=== PATIENT | male | born 1990 | race Two or more races ===

== ENCOUNTER → 2017-07-28 | Outpatient (CLI) | payer OTHER ==
--- NOTE | 2017-08-28 00:11 | ECWPNPC ---
PATIENT NAME: MICHELLE SZYMANSKI : 1990 GENDER: MALE VISIT DATE: 07/28/2017 DISCHARGE DATE: 07/28/17 1515 VISIT LOCKED DATE TIME: PHYSICIAN: ARNAUD RAO RESOURCE: ARNAUD RAO REASON FOR APPOINTMENT 1. NECK AND LOW BACK PAIN HISTORY OF PRESENT ILLNESS NEW PATIENT CONSULT: WHEN DID YOUR PAIN FIRST START? . WHEN DID YOUR PAIN FIRST START? . BRIEFLY DESCRIBE HOW YOUR PAIN STARTED? . BRIEFLY DESCRIBE HOW YOUR PAIN STARTED? . HOW DOES YOUR PAIN CHANGE WITH TIME? . HOW DOES YOUR PAIN CHANGE WITH TIME? . DOES YOUR PAIN AWAKEN YOU FROM SLEEP? . DOES YOUR PAIN AWAKEN YOU FROM SLEEP? . HOW MANY HOURS OF SLEEP DO YOU NORMALLY GET? . HOW MANY HOURS OF SLEEP DO YOU NORMALLY GET? . ANY DIAGNOSTIC TESTING? . ANY DIAGNOSTIC TESTING? . FACILITY WHERE TESTS WERE DONE? ____. FACILITY WHERE TESTS WERE DONE? ____. PAIN TREATMENT TREATMENT YES TREATMENT YES PAIN TREATMENT TREATMENT YES TREATMENT YES CANCER HAVE YOU EVER HAD ANY TYPE OF CANCER?NO HAVE YOU EVER HAD ANY TYPE OF CANCER?NO CANCER HAVE YOU EVER HAD ANY TYPE OF CANCER?NO HAVE YOU EVER HAD ANY TYPE OF CANCER?NO NO. NO. PAIN SCREENING: PATIENT HAS A COMPLAINT OF ACUTE OR CHRONIC PAIN :YES :YES PATIENT HAS A COMPLAINT OF ACUTE OR CHRONIC PAIN :YES :YES FALL RISK SCREENING: SCREENING :NO FALLS IN THE PAST YEAR :NO FALLS IN THE PAST YEAR SCREENING :NO FALLS IN THE PAST YEAR :NO FALLS IN THE PAST YEAR AMATO INVENTORY: QUESTIONNAIRE ASSESSEDTBD ASSESSEDTBD QUESTIONNAIRE ASSESSEDTBD ASSESSEDTBD SCORE VALUE CALCULATED NO WHEN ASKED SPECIFICALLY DENIES SUICIDAL IDEATION VALUE CALCULATED NO SCORE VALUE CALCULATED NO WHEN ASKED SPECIFICALLY DENIES SUICIDAL IDEATION VALUE CALCULATED NO TODAY'S VISIT: NOTES: REFERRED BY KELLIE HOWELL FOR FURTHER EVAL AND TREATMENT OF CHRONIC NECK AND LOW BACK PAIN. WAS PREVEIOUSLY TREATED WITH DR MANDEL THROUGH PAIN SOLUTIONS AND DID HAVE CERVICAL FACET BLOCKS DONE BILATERALLY ONSET SEVERAL YEARS AGO AND PROGRESSIVELY GOT WORSE. HAS HAD NO MAJOR TRAUMA. NOTES PAIN IN THE NECK AND THE LOW BACK AND THEN MID BACK. NECK IS USUALLY THE NECK. NOTES PAIN WITH SITTING AND MOVEMENT OF THE HIPS. NO RAD TO LEGS, FEET, OR ARMS, HANDS. NO SPECIIFIC WEAKNESS. NO N/T. IS HAVING PAIN IN RIGHT WRIST, LEFT KNEEWAS TOLD HAS PINCHED RIGHT ULNAR NERVE PER EMG?DR ART. MOST ACTIVITES ARE UNCOMF AND CAN LIMIT ACTIVITES. PAIN IS WORST IN AM AND OCC AT NITE. HAS HAD PT FOR NECK AND LOW BACK - MASSAGE WAS THE BEST BUT PAIN RETURNED. WAS TRIALED ON GABAPENTIN WHICH MADE TOO SLEEPY. IBU NO HELP, FLEX, BACLOFEN NO HELP. WAS TESTED FOR LYME - NEG.. CURRENT MEDICATIONS NONE PAST MEDICAL HISTORY DEGENERATION OF LUMBAR DISC ARTHRITIS ALLERGIES N.K.D.A. SURGICAL HISTORY LEFT FOOT STEPPED ON NAIL AND NEEDED TO BE REMOVED FROM FOOT 2000 FAMILY HISTORY FATHER: ALIVE MOTHER: ALIVE 1 BROTHER(S) . SOCIAL HISTORY GENERAL: TOBACCO USE ARE YOU A:CURRENT SMOKER ARE YOU INTERESTED IN QUITTING?NOT READY TO QUIT COUNSELED THE PATIENT ON SMOKING EFFECTS, EDUCATION [id number]/29/2017 HOW MANY CIGARETTES A DAY DO YOU SMOKE?11-20 PATIENT COUNSELED ON THE DANGERS OF TOBACCO USE AND URGED TO QUIT:07/28/2017 ALCOHOL SCREENING POINTS0 INTERPRETATIONNEGATIVE RECREATIONAL DRUG USE DRUG USE?YES HOW OFTEN AND HOW MUCH? MARIJUANA DAILY CAFFEINE CAFFEINE USE?YES HOW OFTEN AND HOW MUCH? DAILY LEARNING BARRIERS / SPECIAL NEEDS BARRIERS TO LEARNING?NO HEARING IMPAIRED?NO VISION IMPAIRED?YES : CORRECTIVE LENSES LEARNING PREFERENCES?NO SPECIAL DEVICES?NO PAIN CLINIC PFS, CLERGY, PUBLIC HEALTH REFERRALS CLERGY REFERRAL NEEDED?NO WAS THE PROVIDER NOTIFIED OF ANY PERTINENT INFO?NO PFS REFERRAL NEEDED?NO PUBLIC HEALTH REFERRAL NEEDED?NO PFS REFERRAL NEEDED?NO CLERGY REFERRAL NEEDED?NO PUBLIC HEALTH REFERRAL NEEDED?NO WAS THE PROVIDER NOTIFIED OF ANY PERTINENT INFO?NO HAS THE PATIENT BEEN EDUCATED REGARDING HIS/HER PLAN OF CARE?YES HAS THE PATIENT BEEN EDUCATED REGARDING PAIN, THE RISK FOR PAIN, THE IMPORTANCE OF EFFECTIVE PAIN MANAGEMENT, AND THE PAIN ASSESSMENT PROCESS?YES PATIENT: ____, ____. ADVANCE DIRECTIVES HEALTH CARE PROXY?NO WOULD YOU LIKE MORE INFORMATION?NO HOSPITALIZATION/MAJOR DIAGNOSTIC PROCEDURE DENIES PAST HOSPITALIZATION REVIEW OF SYSTEMS REVIEWED BY: PROVIDER: ARNAUD [place] . CONSTITUTIONAL: ANY CHANGE IN YOUR MEDICAL CONDITION? NO, NO . CHILLS NO, NO . FEVER NO, NO . INFECTION: DO YOU HAVE NEW INFECTIONS? NO, NO . DO YOU HAVE HISTORY OF MRSA? NO, NO . MUSCULOSKELETAL: ANY NEW PATTERNS OF PAIN OR NUMBNESS? NO, NO . SYTEMIC LUPUS NO, NO . GASTROENTEROLOGY: ANY NEW CHANGE IN BOWEL CONTROL? NO, NO . BARRETTS ESOPHAGUS NO, NO . CIRRHOSIS NO, NO . HEPATITIS NO, NO . LIVER FAILURE NO, NO . ACID REFLUX NO, NO . UNEXPLAINED WEIGHT LOSS NO, NO . GENITOURINARY: ANY NEW CHANGE IN BLADDER CONTROL? NO, NO . IS THERE A CHANCE YOU COULD BE ? NO, NO . HEMATOLOGY/LYMPH: DO YOU TAKE ANY BLOOD THINNERS? (FOR EXAMPLE- COUMADIN, PLAVIX, AGGRENOX, PLATEL, PRADAXA, OR XARELTO) NO, NO . WHEN WAS YOUR LAST DOSE? DATE: TIME: , DATE: TIME: . LOW PLATELET COUNT NO, NO . SICKLE CELL DISEASE NO, NO . VON WILLIEBRANDS NO, NO . FACTOR V LEIDEN NO, NO . THALLASEMIA NO, NO . ANEMIA NO, NO . EASY BRUISING NO, NO . NEUROLOGY: HAVE YOU FALLEN IN THE PAST 6 MONTHS? NO, NO . ANY NEW EXTREMITY NUMBNESS OR WEAKNESS? NO, NO . HEAD INJURY NO, NO . DEMENTIA NO, NO . CEREBRAL PALSY NO, NO . MULTIPLE SCLEROSIS NO, NO . DIZZINESS NO, NO . HEADACHE NECK DOES CAUSE HEADACHES. . STROKES NO, NO . VERTIGO NO, NO . CARDIOLOGY: DO YOU HAVE A PACEMAKER OR DEFIBRILLATOR? NO, NO . ANGINA NO, NO . HEART ATTACK NO, NO . HEART SURGERY NO, NO . CONGESTIVE HEART FAILURE/FLUID OVERLOAD NO, NO . CHEST PAIN NO, NO . HIGH BLOOD PRESSURE NO, NO . IRREGULAR HEART BEAT NO, NO . RESPIRATORY: HAVE YOU BEEN SICK IN THE PAST WEEK? NO, NO . FEVER NO, NO . FLU LIKE SYMPTOMS? NO, NO . CPAP NO, NO . BYPAP NO, NO . ASTHMA NO, NO . EMPHYSEMA NO, NO . CHRONIC LUNG DISEASES NO, NO . SHORTNESS OF BREATH ON EXERTION NO, NO . DO YOU USE ANY TYPE OF TOBACCO (SMOKE, SMOKELESS, CHEW)? , YES . COUGH NO, NO . SNORING NO, NO . INTEGUMENTARY: DO YOU HAVE ANY RASHES OR OPEN SORES? NO, NO . ALLERGIC/IMMUNO: ARE YOU ALLERGIC TO SHELLFISH OR IV DYE? NO, NO . ANY NEW ALLERGIES? NO, NO . PSYCHIATRIC: DO YOU HAVE THOUGHTS OF HURTING YOURSELF OR SOMEONE ELSE? NO, NO . ARE YOU ABUSED, NEGLECTED, OR IN AN UNSAFE ENVIRONMENT? NO, NO . ENDOCRINOLOGY: ARE YOU DIABETIC? NO, NO . THYROID DISORDER NO, NO . OTHER: DO YOU NEED ANY PRESCRIPTIONS? NO, NO . IF YES, PLEASE LIST: ____, ____ . ANY NEW PROBLEMS WITH YOUR MEDICATIONS? NO, NO . WHEN DID YOU LAST EAT? ____, ____ . WHEN DID YOU LAST DRINK? ____, ____ . WHAT DID YOU LAST DRINK? ____, ____ . NAME OF PERSON DRIVING YOU HOME? ____, ____ . DO YOU HAVE ANY OTHER QUESTIONS OR CONCERNS NO, NO . VITAL SIGNS WT 159.2 LBS, HT 66 IN, BMI 25.69 INDEX, BP 146/85 MM HG, HR 94 /MIN, RR 16 /MIN, TEMP 98.2 F, OXYGEN SAT % 99%, NA INITIALS CM 1347. EXAMINATION GENERAL EXAMINATION: PSYCHALERT , ORIENTED X 3 , APPREARS SAD. POOR EYE CONTACT. HEENT:NORMOCEPHALIC, NO LYMPHADENOPATHY, NO THYROMEGLY. LUNGS:CLEAR TO AUSCULTATION BILATERALLY, NO WHEEZES, RALES OR RHONCHI. HEART:HEART RATE REGULAR, NORMAL S1S2, NO MURMURS, CLICK OR RUBS. MUSCULOSKELETAL:MUSCLE STRENGTH TESTING 5/5 BILATERAL. POINT TENDERNESS OVER CERVICAL SPINOUS PROCESSES, THORACIC SPINOUS PROCESSES AND LUMBAR SPINOUS PROCESSSES, NO SACRAL ILIAC JOINT TENDERNESS. CAN FLEX TO 90 DEGREES. NO PAIN WITH SLR. PAIN WITH PELVIC CONPRESSION ON LEFT . NEUROLOGIC EXAM:NO SENSORY DEFICIET OVER UPPER OR LOWER EXTREMITIES. DTR'S 2+ BILATERAL UPPER AND LOWER EXTREMITIES. , CN'S II-XII GROSSLY INTACT. 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 CLINICAL NOTES: DISCUSSED MEDICATION OPTIONS. IN SPECIFIC STATED THAT WE COULD LOOK AT INTERVENTIONAL TREATMENTS BUT PT STATES HE IS NOT INTERESTED IN THIS OPTION. WOULD BE WILLING TO TRY NON-OPIOD MEDICATIONS BUT DID REVIEW WITH HIM AND HIS SO THAT OPIODS WERE NOT THE DIRECTION THAT ANY PAIN CENTER IS GOING PARTICULARLY INLIGHT OF HIS YOUTH AND THATTHE PRIMARY CAUSE OF DISCOMFORT APPEARS TO BE DEGENERATIVE CHANGES. PREVENTIVE MEDICINE PAIN CLINIC TEACHING: MEDICATIONS REVIEWED INDOCIN WITH PATIENT AND S.O. IMPORTANCE OF TAKING WITH FOOD AND NOT TO USE NSAIDS WITH IT. . PROCEDURE CODES FA211 ESTABILISHED PATIENT [facility] CHARGE DISPOSITION & COMMUNICATION FOLLOW UP ONE MONTH (REASON: NECK/BACK PAIN) ELECTRONICALLY SIGNED BY GREGG PARKS ON 08/27/2017 AT 09:15 PM EDT DISCLAIMER : THIS IS A VISIT SUMMARY EXTRACTED FROM THE [employer] CHART. IT IS NOT A COPY OF THE [employer] PROGRESS NOTE. MTDD
== END ==
LOC: M PAIN 13:45
PROVIDERS: ATTEND Nurse Practitioner Family
DX: G89.29 Other chronic pain (principal); M54.2 Cervicalgia; M54.5 Low back pain; M47.892 Other spondylosis, cervical region; M19.90 Unspecified osteoarthritis, unspecified site; F17.210 Nicotine dependence, cigarettes, uncomplicated; F12.10 Cannabis abuse, uncomplicated

== ENCOUNTER → 2017-08-25 | Outpatient (CLI) | payer OTHER ==
--- NOTE | 2017-09-25 00:51 | ECWPNPC ---
PATIENT NAME: MICHELLE SZYMANSKI : 1990 GENDER: MALE VISIT DATE: 08/25/2017 DISCHARGE DATE: 08/25/17 1127 VISIT LOCKED DATE TIME: PHYSICIAN: ARNAUD RAO RESOURCE: ARNAUD RAO REASON FOR APPOINTMENT 1. NECK/BACK PAIN HISTORY OF PRESENT ILLNESS HISTORY OF PRESENT ILLNESS: PAIN THE PATIENT DESCRIBES THE PAIN... FALL RISK SCREENING: SCREENING :NO FALLS IN THE PAST YEAR TODAY'S VISIT: NOTES: RATES PAIN TODAY 10/10. DESCRIBES PAIN SHARP AND SORE AND IS CENTERED IN LOW BACK AND JOINTS. COULD NOT TOLERATE INDOMETHICIN. HAD LABS DONE AND LABS ARE REVIEWED. CURRENT MEDICATIONS NOT-TAKING INDOMETHACIN 50 MG CAPSULE 1 CAPSULE WITH FOOD OR MILK ORALLY TWICE A DAY MEDICATION LIST REVIEWED AND RECONCILED WITH THE PATIENT PAST MEDICAL HISTORY DEGENERATION OF LUMBAR DISC ARTHRITIS ALLERGIES N.K.D.A. SOCIAL HISTORY GENERAL: TOBACCO USE ARE YOU A:CURRENT SMOKER ARE YOU INTERESTED IN QUITTING?NOT READY TO QUIT COUNSELED THE PATIENT ON SMOKING EFFECTS, EDUCATION TABZONAJ29/29/2017 HOW MANY CIGARETTES A DAY DO YOU SMOKE?11-20 PATIENT COUNSELED ON THE DANGERS OF TOBACCO USE AND URGED TO QUIT:07/28/2017 ALCOHOL SCREENING DID YOU HAVE A DRINK CONTAINING ALCOHOL IN THE PAST YEAR?NO POINTS0 INTERPRETATIONNEGATIVE RECREATIONAL DRUG USE DRUG USE?YES HOW OFTEN AND HOW MUCH? MARIJUANA DAILY CAFFEINE CAFFEINE USE?YES HOW OFTEN AND HOW MUCH? DAILY LEARNING BARRIERS / SPECIAL NEEDS BARRIERS TO LEARNING?NO HEARING IMPAIRED?NO VISION IMPAIRED?YES : CORRECTIVE LENSES LEARNING PREFERENCES?NO SPECIAL DEVICES?NO PAIN CLINIC PFS, CLERGY, PUBLIC HEALTH REFERRALS PFS REFERRAL NEEDED?NO CLERGY REFERRAL NEEDED?NO PUBLIC HEALTH REFERRAL NEEDED?NO WAS THE PROVIDER NOTIFIED OF ANY PERTINENT INFO?NO HAS THE PATIENT BEEN EDUCATED REGARDING HIS/HER PLAN OF CARE?YES HAS THE PATIENT BEEN EDUCATED REGARDING PAIN, THE RISK FOR PAIN, THE IMPORTANCE OF EFFECTIVE PAIN MANAGEMENT, AND THE PAIN ASSESSMENT PROCESS?YES PATIENT: ____, ____. ADVANCE DIRECTIVES HEALTH CARE PROXY?NO WOULD YOU LIKE MORE INFORMATION?NO REVIEW OF SYSTEMS REVIEWED BY: PROVIDER: ARNAUD [place] . CONSTITUTIONAL: ANY CHANGE IN YOUR MEDICAL CONDITION? NO . CHILLS NO . FEVER NO . INFECTION: DO YOU HAVE NEW INFECTIONS? NO . DO YOU HAVE HISTORY OF MRSA? NO . MUSCULOSKELETAL: ANY NEW PATTERNS OF PAIN OR NUMBNESS? NO . GASTROENTEROLOGY: ANY NEW CHANGE IN BOWEL CONTROL? NO . GENITOURINARY: ANY NEW CHANGE IN BLADDER CONTROL? NO . IS THERE A CHANCE YOU COULD BE ? NO . HEMATOLOGY/LYMPH: DO YOU TAKE ANY BLOOD THINNERS? (FOR EXAMPLE- COUMADIN, PLAVIX, AGGRENOX, PLATEL, PRADAXA, OR XARELTO) NO . WHEN WAS YOUR LAST DOSE? DATE: TIME: . NEUROLOGY: HAVE YOU FALLEN IN THE PAST 6 MONTHS? NO . ANY NEW EXTREMITY NUMBNESS OR WEAKNESS? NO . CARDIOLOGY: DO YOU HAVE A PACEMAKER OR DEFIBRILLATOR? NO . RESPIRATORY: HAVE YOU BEEN SICK IN THE PAST WEEK? NO . FEVER NO . FLU LIKE SYMPTOMS? NO . COUGH NO . INTEGUMENTARY: DO YOU HAVE ANY RASHES OR OPEN SORES? NO . ALLERGIC/IMMUNO: ARE YOU ALLERGIC TO SHELLFISH OR IV DYE? NO . ANY NEW ALLERGIES? NO . PSYCHIATRIC: DO YOU HAVE THOUGHTS OF HURTING YOURSELF OR SOMEONE ELSE? NO . ARE YOU ABUSED, NEGLECTED, OR IN AN UNSAFE ENVIRONMENT? NO . ENDOCRINOLOGY: ARE YOU DIABETIC? NO . OTHER: DO YOU NEED ANY PRESCRIPTIONS? NO . IF YES, PLEASE LIST: ____ . ANY NEW PROBLEMS WITH YOUR MEDICATIONS? YES, COULDN'T TAKE INDOCIN, IT MADE HIS STOMACH "MESSED UP," . WHEN DID YOU LAST EAT? ____ . WHEN DID YOU LAST DRINK? ____ . WHAT DID YOU LAST DRINK? ____ . NAME OF PERSON DRIVING YOU HOME? ____ . DO YOU HAVE ANY OTHER QUESTIONS OR CONCERNS NO . VITAL SIGNS WT 165.4 LBS, HT 66 IN, BMI 26.69 INDEX, BP 139/73 MM HG, HR 80 /MIN, RR 16 /MIN, TEMP 99.7 F, OXYGEN SAT % 98%, NA INITIALS TL 1105, REVIEWED BY: CM. EXAMINATION GENERAL EXAMINATION: PSYCHALERT , ORIENTED X 3 , APPREARS SAD. POOR EYE CONTACT. LUNGS:CLEAR TO AUSCULTATION BILATERALLY, NO WHEEZES, RALES OR RHONCHI. HEART:HEART RATE REGULAR, NORMAL S1S2, NO MURMURS, CLICK OR RUBS. MUSCULOSKELETAL:MUSCLE STRENGTH TESTING 5/5 BILATERAL. POINT TENDERNESS OVER CERVICAL SPINOUS PROCESSES, THORACIC SPINOUS PROCESSES AND LUMBAR SPINOUS PROCESSSES, NO SACRAL ILIAC JOINT TENDERNESS. POSTURE UPRIGHT. GAIT NONANTALGIC. NEUROLOGIC EXAM:NO SENSORY DEFICIET OVER UPPER OR LOWER EXTREMITIES. DTR'S 2+ BILATERAL UPPER AND LOWER EXTREMITIES. , CN'S II-XII GROSSLY INTACT. 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 CNSIDER STEROID PULSE THERAPY. KEEP WALKING AND MOVING. PROCEDURE CODES FA211 ESTABILISHED PATIENT [facility] FACILITY CHARGE DISPOSITION & COMMUNICATION FOLLOW UP CALL IF APPOINTMENT NEEDED ELECTRONICALLY SIGNED BY GREGG PARKS ON 09/24/2017 AT 08:50 PM EST DISCLAIMER : THIS IS A VISIT SUMMARY EXTRACTED FROM THE [employer] CHART. IT IS NOT A COPY OF THE [employer] PROGRESS NOTE. DI
== END ==
LOC: M PAIN 10:30
PROVIDERS: ATTEND Nurse Practitioner Family
DX: M54.2 Cervicalgia (principal); M54.5 Low back pain; G89.29 Other chronic pain; M47.892 Other spondylosis, cervical region; F17.210 Nicotine dependence, cigarettes, uncomplicated; Z79.899 Other long term (current) drug therapy

== ENCOUNTER → 2025-05-20 | Outpatient (CLI) | payer OTHER ==
[~2025-05-20] MED LIST: ACET-683 PO; ASPI-255 PO; IBUP80TA PO; PERCOCET PO
== END ==
LOC: M RAD 10:00
PROVIDERS: ATTEND Orthopaedic Surgery
DX: S82.252B Displaced comminuted fracture of shaft of left tibia, initial encounter for open fracture type I or II (principal)

== ENCOUNTER → 2025-05-30 | Outpatient (CLI) | payer OTHER | LOC: M SOG 06:52 | PROVIDERS: ATTEND Physician Assistant | DX: S82.252E Displaced comminuted fracture of shaft of left tibia, subsequent encounter for open fracture type I or II with routine healing (principal) ==

== ENCOUNTER → 2025-07-07 | Outpatient (CLI) | payer OTHER | LOC: M SOG 08:11 | PROVIDERS: ATTEND Physician Assistant | DX: S82.252 Displaced comminuted fracture of shaft of left tibia (principal) ==

== ENCOUNTER → 2025-08-19 | Outpatient (CLI) | payer OTHER | LOC: M SOG 07:21 | PROVIDERS: ATTEND Physician Assistant | DX: S82.252E Displaced comminuted fracture of shaft of left tibia, subsequent encounter for open fracture type I or II with routine healing (principal) ==

== ENCOUNTER → 2025-09-17 | Outpatient (CLI) | payer OTHER | LOC: M SOG 07:40 | PROVIDERS: ATTEND Physician Assistant | DX: S82.252B Displaced comminuted fracture of shaft of left tibia, initial encounter for open fracture type I or II (principal) ==